=== PATIENT | female | born 1950 | race Hispanic/Latino ===

== ENCOUNTER 2019-03-19 18:05 | Inpatient (IN) | payer MEDICARE, OTHER ==
--- NOTE | 2019-03-19 19:30 | Emergency Department Report ---
Chief Complaint: Arrhythmia/Palpitations Stated Complaint: ABD PAIN/HEART RACING Time Seen by Provider: 03/19/19 19:25 - HPI History of Present Illness: pt presents for palpitations that began today states her is currently in the CCU and states she has had increased stress states she has burning sensation in the epigastric and LUQ of the abdomen no CP (+) exertional SOB, states she takes a couple steps and feels more SOB hx of afib, DM pt takes metoprolol states she last took it last night pt states she is supposed to be on xarelto and has not taken it in a week MSE screening note: Focused history performed Due to findings the following was ordered: labs, CXR/abdominal ED Disposition for MSE Condition: Stable
[2019-03-19 19:57] LABS: Basophils # (Auto) 0.1 K/mm3 (0.0-0.1); Basophils % (Auto) 1.3 % (0.0-1.8); Eosinophils # (Auto) 0.2 K/mm3 (0.0-0.4); Eosinophils % (Auto) 2.5 % (0.0-4.3); Hematocrit 35.5 % (30.3-42.9); Lymphocytes % (Auto) 23.9 % (13.4-35.0); Mean Corpuscular HGB Conc 34 % (30-34); Mean Corpuscular Volume 96 fl (79-97); Monocytes # (Auto) 0.6 K/mm3 (0.0-0.8); Platelet Count 201 K/mm3 (140-440); Red Blood Count 3.71 M/mm3 (3.65-5.03); Red Cell Distribution Width 14.3 % (13.2-15.2)
[2019-03-19 20:13] LABS: INR 1.1 (0.87-1.13)
--- NOTE | 2019-03-19 20:13 | XRay Report ---
PROCEDURE: XR ABD SERIES W CXR 1V TECHNIQUE: PA view of the chest and supine and erect views of the abdomen HISTORY: CP, upper abd pain COMPARISONS: None . FINDINGS: Chest: Lungs are clear. Trachea is midline. The heart is enlarged. Mediastinum is otherwise unremarka ble. Abdomen: The bowel gas pattern is nonspecific. Moderate stool is present throughout the colon. No makenna e air is identified. Soft tissues have no evidence for mass shadows or calcifications. Bony Structures: The bony structures are intact. Mild levoscoliosis centered around L3. IMPRESSION: 1. No acute cardiopulmonary process seen. Cardiomegaly 2. Nonspecific, nonobstructive bowel gas pattern with no acute process noted. This document is electronically signed by Najma Vernon MD., March 19 2019 08:11:42 PM ET
[2019-03-19 20:14] LABS: Albumin 3.8 g/dL (3.9-5); Calcium 9.5 mg/dL (8.4-10.2); Partial Thromboplastin Time 30.6 Sec. (24.2-36.6)
--- NOTE | 2019-03-19 20:54 | Emergency Department Report ---
ED General Adult HPI - General Chief complaint: Arrhythmia/Palpitations Stated complaint: ABD PAIN/HEART RACING Time Seen by Provider: 03/19/19 19:25 Source: patient Mode of arrival: Ambulatory Limitations: No Limitations - History of Present Illness Initial comments: 5-year-old female with a history of atrial fibrillation presents with a complaint of palpitations and upper abdominal pain. Patient also complains of shortness of breath. Patient states that she has not had her the results of therapy for the past 2 weeks. Patient complains of her heart beating fast and a terrible burning in her stomach. Patient states that she has been trying gene dee Pepcid and Ebony-Maben with minimal relief. Patient states that her symptoms began on Tuesday and she also had associated shortness of breath. Denies any radiation of pain. Severity scale (0 -10): 7 - Related Data Allergies Allergy/AdvReac Type Severity Reaction Status Date / Time No Known Allergies Allergy Unverified 03/19/19 18:19 ED Review of Systems ROS: Stated complaint: ABD PAIN/HEART RACING Other details as noted in HPI Constitutional: denies: chills, fever Eyes: denies: eye pain, eye discharge, vision change ENT: denies: ear pain, throat pain Respiratory: SOB at rest. denies: cough, shortness of breath, wheezing Cardiovascular: palpitations. denies: chest pain Endocrine: no symptoms reported Gastrointestinal: denies: abdominal pain, nausea, diarrhea Genitourinary: denies: urgency, dysuria, discharge Musculoskeletal: denies: back pain, joint swelling, arthralgia Skin: denies: rash, lesions Neurological: denies: headache, weakness, paresthesias Psychiatric: denies: anxiety, depression Hematological/Lymphatic: denies: easy bleeding, easy bruising ED Past Medical Hx - Past Medical History Hx Diabetes: Yes Additional medical history: AFIB - Surgical History Past Surgical History?: No Additional Surgical History: right knee, 2 c-sections,hysterectomy - Social History Smoking Status: Never Smoker Substance Use Type: None ED Physical Exam - General Limitations: No Limitations General appearance: alert, in no apparent distress, other (mildly uncomfortable) - Head Head exam: Present: atraumatic, normocephalic - Eye Eye exam: Present: normal appearance - ENT ENT exam: Present: mucous membranes moist - Neck Neck exam: Present: normal inspection - Respiratory Respiratory exam: Present: normal lung sounds bilaterally. Absent: respiratory distress - Cardiovascular Cardiovascular Exam: Present: irregular rhythm. Absent: systolic murmur, diastolic murmur, rubs, gallop - GI/Abdominal GI/Abdominal exam: Present: soft, tenderness (noted in epigastric region), normal bowel sounds - Extremities Exam Extremities exam: Present: normal inspection - Back Exam Back exam: Present: normal inspection - Neurological Exam Neurological exam: Present: alert, oriented X3 - Psychiatric Psychiatric exam: Present: normal affect, normal mood - Skin Skin exam: Present: warm, dry, intact, normal color. Absent: rash ED Course Vital Signs 03/19/19 03/19/19 03/19/19 19:25 22:51 23:05 Temperature 98.3 F Pulse Rate 72 77 55 L Respiratory 18 16 14 Rate Blood Pressure 159/84 Blood Pressure 164/79 153/62 [Left] O2 Sat by Pulse 96 97 96 Oximetry 03/20/19 00:03 Temperature Pulse Rate 90 Respiratory 20 Rate Blood Pressure Blood Pressure 137/72 [Left] O2 Sat by Pulse 100 Oximetry ED Medical Decision Making - Lab Data Result diagrams: 03/19/19 19:42 03/19/19 19:42 - EKG Data -: EKG Interpreted by Ms EKG shows normal: sinus rhythm - EKG Data Interpretation: other (occasional PVCs) - Medical Decision Making Patient is in no acute distress at current time. Patient on CT anterior chest has a presence of pericardial effusion. Patient has a stable at a rate of 81. Cardiology was consulted and stated they will see the patient in consultation. I spoke with Dr. Urena. Patient to be admitted to the hospitalist service for continued management and treatment. Patient at this current time has a stable blood pressure as well and has no evidence of cardiac tamponade. - Differential Diagnosis NSTEMI; STEMI; electrolyte abnormalities; anemia; PE Critical care attestation.: If time is entered above; I have spent that time in minutes in the direct care of this critically ill patient, excluding procedure time. ED Disposition Clinical Impression: Atrial fibrillation, Pericardial effusion Disposition: OP ADMIT IP TO THIS HOSP Is pt being admited?: Yes Does the pt Need Aspirin: No Condition: Stable Time of Disposition: 00:55
[2019-03-19] MEDS ORDERED: PEPCID IV ONE (21:07)
[2019-03-19] MEDS ORDERED: ALUM-MAG HYDROX-SIMETH 200-200-20MG/5ML PO ONE (21:11)
[2019-03-19] MEDS ORDERED: LIDOCAINE VISCOUS 2% PO ONE (21:11)
[2019-03-19] MEDS ORDERED: BANOPHEN PO ONE (21:12)
[2019-03-19 21:23] LABS: Creatine Kinase MB 3.6 ng/mL (0.0-4.0)
--- NOTE | 2019-03-19 23:17 | Cat Scan Report ---
PROCEDURE: CT ABDOMEN PELVIS W CON TECHNIQUE: Computerized axial tomography of the abdomen and pelvis was performed after the IV inject ion of iodinated nonionic contrast. HISTORY: chest pain and abdominal pain COMPARISONS: None . FINDINGS: Visualized lower thorax: The heart size is enlarged. There is a mild pericardial effusion. Mild atele ctasis bilateral lower lungs.. Liver: There is fatty infiltration of the liver. Spleen: Normal size and attenuation. Gallbladder and biliary system: There are stones identified with a slightly distended gallbladder lum en. No dilatation of the biliary ductal system. Pancreas: Normal. Adrenals: Normal. Kidneys: Both kidneys have a normal sinus. No hydronephrosis. There is a small subcentimeter cyst in the lateral left renal cortex.. GI tract: There is thickening of the gastric wall around the pylorus. Minimal fluid in this region i s also noted. Gastritis is active. There is a small hiatal hernia. The small bowel has normal caliber without obstruction. No ileus or enteritis. Is normal. The appendix region is normal. There is mild fecal debris throughout the colon. . Lymph nodes and mesentery: Normal. Vasculature: Minimal atherosclerosis of the aorta.. Bladder: Normal. Reproductive organs: The uterus is absent. No pelvic masses. Peritoneum: No free fluid. Musculoskeletal structures: Moderate degenerative changes of the lumbar spine.. Other: There is a moderate-sized fat-containing lower abdominal wall ventral hernia cavity. . IMPRESSION: There is thickening of the gastric wall involving the pylorus of the stomach, minimal fl uid around the gastric wall in this region is noted. Gastritis is possible. Further evaluation with e ndoscopy may be appropriate. There is a mild hiatal hernia. There is no evidence of intestinal or urinary tract obstruction. Cholelithiasis with slight distention of the gallbladder lumen. No evidence of bile duct dilatation. Cardiomegaly with slight pericardial effusion. There is a moderate-sized fat-containing lower abdominal wall ventral hernia cavity. . This document is electronically signed by Mavis Salazar DO., March 19 2019 11:15:48 PM ET
--- NOTE | 2019-03-20 00:43 | Cat Scan Report ---
PROCEDURE: CT ANGIOGRAM OF THE CHEST FOR PULMONARY EMBOLISM TECHNIQUE: Computerized axial tomographic angiography of the chest and pulmonary arteries was perfor med after the IV injection of iodinated nonionic contrast. The image data was postprocessed using max imum intensity projection (MIP) and 2-dimensional multiplanar reformatted (MPR) techniques. The exami nation is specifically tailored to the evaluation of the pulmonary arteries per clinical request. Au tomated exposure control, adjustment of mA and/or kV according to patient size, or iterative reconstr uction dose optimization techniques were utilized. CPT G9637, 75031 HISTORY: Shortness of breath R06.02, chest pain unspecified R07.9 , COMPARISONS: None . FINDINGS: Heart and pericardium: Heart is borderline enlarged. There is a moderate pericardial effusion.. Thoracic aorta: There is no thoracic aortic aneurysm or dissection.. Pulmonary vasculature: Normal. No pulmonary emboli. Lymph nodes: No enlarged thoracic lymph nodes. Lungs: There is suboptimal inspiration. There is atelectasis at the lung bases. There are no acute i nfiltrates.. Pleural space: There is no pleural effusion or pneumothorax.. Musculoskeletal structures: No significant abnormality. Upper abdominal structures: No significant abnormality. IMPRESSION: There is no pulmonary embolism.. Heart is borderline enlarged. There is a moderate pericardial effusion.. There is no thoracic aortic aneurysm or dissection.. There is suboptimal inspiration. There is atelectasis at the lung bases. There are no acute infiltrat es.. There is no pleural effusion or pneumothorax.. This document is electronically signed by Pal Burgess MD., March 20 2019 12:41:52 AM ET
[2019-03-20] MEDS ORDERED: ZOFRAN IV PRN (01:44)
[2019-03-20] MEDS ORDERED: SODIUM CHLORIDE FLUSH SYRINGE 10 ML IV PRN (01:44)
[2019-03-20] MEDS ORDERED: D50W (25GM) Syringe IV PRN (01:44)
[2019-03-20] MEDS ORDERED: PERCOCET 5/325 PO PRN (01:44)
[2019-03-20] MEDS ORDERED: TYLENOL PO PRN (01:44)
--- NOTE | 2019-03-20 01:44 | History and Physical Report ---
History of Present Illness Date of examination: 03/20/19 History of present illness: 68-year-old woman with a history of A. fib, hypertension, diabetes as emergency room with complaints of chest pain. Pain is in the epigastric and mid upper abdomen which she describes a dull pain, constant, intensity 5/10, no radiation treatment identified exacerbating symptoms. Her symptoms started on Tuesday. Admits to nausea, shortness of breatH, no vomiting diaphoresis or palpitation. Review of systems Constitutional: no weight loss, chills, fever Ears, eyes, nose, mouth and throat: no nasal congestion, no nasal discharge, no sinus pressure, no vision change, no red eye. Neck: No neck pain or rigidity. Cardiovascular: no palpitations Respiratory: no cough, shortness of breath Gastrointestinal: no hematochezia, abdominal pain Genitourinary : no frequency , no hematuria Musculoskeletal: no joint swelling or muscle ache Integumentary: no rash, no pruritis Neurological: no parathesias, no focal weakness Endocrine: no cold or heat intolerance, no polyuria or polydipsia Hematologic/Lymphatic: no easy bruising, no easy bleeding, no gland swelling Allergic/Immunologic: no urticaria, no angioedema. Medications and Allergies Allergies Allergy/AdvReac Type Severity Reaction Status Date / Time No Known Allergies Allergy Unverified 03/19/19 18:19 Home Medications Medication Instructions Recorded Confirmed Last Taken Type Unobtainable 03/20/19 03/20/19 Unknown History Exam - Physical Exam Narrative exam: General Apperance: The patient lying in bed, breathing comfortable HEENT: Normocephalic, atraumatic. Pupils equally round and reactive to light, EOMI, no sclericterus or JVD or thyromegaly or nodule. , no carotid bruit, mucous membranes moist, no exudate or erythema Heart: S1-S2, regular is rhythm Lungs: Clear to auscultation bilaterally, breathing comfortable Abdomen: Positive bowel sounds, soft, nontender, nondistended, no organomegaly Extremities: No edema cyanosis clubbing Skin: no rash, nodule, warm and dry Neuro: cranial nerves 2-12 intact, speech is fluent, motor/sensory intact - Constitutional Vitals: Temp Pulse Resp BP Pulse Ox 98.3 F 90 20 137/72 100 03/19/19 19:25 03/20/19 00:03 03/20/19 00:03 03/20/19 00:03 03/20/19 00:03 Results - Labs CBC & Chem 7: 03/20/19 04:17 03/20/19 04:17 Labs: Abnormal lab results 03/19/19 03/19/19 03/19/19 Range/Units 19:42 19:42 19:42 D-Dimer 661.14 H (0-234) ng/mlDDU BUN 21 H (7-17) mg/dL Glucose 116 H (65-100) mg/dL Total Creatine Kinase 153 H (30-135) units/L Albumin 3.8 L (3.9-5) g/dL - Imaging and Cardiology CT scan - abdomen: report reviewed CT scan - chest: report reviewed CT scan - pelvis: report reviewed Assessment and Plan Assessment Pericardial effusion Chest pain hypertension A. fib Plan Admit to medicine Check cardiac enzymes, echo, consult cardiology Consult critical care DVT prophylaxis Follow-up med rec
[2019-03-20 04:48] LABS: Basophils # (Auto) 0.1 K/mm3 (0.0-0.1); Basophils % (Auto) 0.8 % (0.0-1.8); Eosinophils # (Auto) 0.2 K/mm3 (0.0-0.4); Eosinophils % (Auto) 2.9 % (0.0-4.3); Hematocrit 33.3 % (30.3-42.9); Hemoglobin 11.4 gm/dl (10.1-14.3); Lymphocytes # (Auto) 2.4 K/mm3 (1.2-5.4); Lymphocytes % (Auto) 29.7 % (13.4-35.0); Mean Corpuscular HGB Conc 34 % (30-34); Mean Corpuscular Volume 95 fl (79-97); Monocytes # (Auto) 0.6 K/mm3 (0.0-0.8); Monocytes % (Auto) 7.9 % (0.0-7.3); Platelet Count 183 K/mm3 (140-440); Red Cell Distribution Width 14.1 % (13.2-15.2)
[2019-03-20 05:09] LABS: Calcium 9.2 mg/dL (8.4-10.2)
[2019-03-20 07:42] LABS: Creatine Kinase MB 10.8 ng/mL (0.0-4.0)
[2019-03-20] MEDS: HumaLOG SUB-Q SCH ×4 (07:48→21:48)
[2019-03-20 07:59] LABS: Chol/HDL Ratio 3.17 %
--- NOTE | 2019-03-20 08:15 | Progress Note ---
Assessment and Plan Assessment and plan: Patient is a 68 yo woman with a history of Afib, hypertension and DM who presented to [facility] ED on 03/19/19 with chest pains. * CTA chest IMPRESSION: There is no pulmonary embolism.. Heart is borderline enlarged. There is a moderate pericardial effusion.. There is no thoracic aortic aneurysm or dissection.. There is suboptimal inspiration. There is atelectasis at the lung bases. There are no acute infiltrates.. There is no pleural effusion or pneumothorax.. * CT abd/pelvis with contrast IMPRESSION: There is thickening of the gastric wall involving the pylorus of the stomach, minimal fluid around the gastric wall in this region is noted. Gastritis is possible. Further evaluation with endoscopy may be appropriate. There is a mild hiatal hernia. There is no evidence of intestinal or urinary tract obstruction. Cholelithiasis with slight distention of the gallbladder lumen. No evidence of bile duct d ilatation. Cardiomegaly with slight pericardial effusion. There is a moderate- sized fat-containing lower abdominal wall ventral hernia cavity. . -Chest pains, first troponin negative, 2nd troponin positive possible NSTEMI: notified her [employer], Dr. Velazquez, keep npo, start iv heparin drip, asa, bb, statin, ntg prn, reviewed new stat EKG, afib 80s -Pericardial effusion on CTA chest: get Echo -Accelerated hypertension: added bblocker, -AFib, out of Xarelto x 2 weeks due to lack of insurance coverage: rate control for now -Hypertension -DM type 2: ssi -Home medication not reconciled I have asked ED nurse to obtain home medications and enter into EMR. pt does know doses and waiting for [facility] to open, pcp retired -Resting tremor without diagnosis of PD: continue to monitor, advised outpt follow-up and care full code, in our ICU CCT 32 minutes History Interval history: Patient was seen and examined. Follow-up on current diagnosis. Overnight uneventful. Patient denies any chest pain, shortness breath, vomiting or severe headaches. Imaging, nursing note, chart, labs and old chart reviewed. Discussed with patient. +Abd pain Hospitalist Physical - Physical exam Narrative exam: Gen: WDWN, NAD, Awake, Alert, Orientated HEENT: NCAT, EOMI, PERRL, OP Clear Neck: supple, no adenopathy, no thyromegaly, no JVD CVS/Heart: irregular irregular normal S1S2, pulses present bilaterally Chest/Lungs: CTA B, Symmetrical chest expansion, good air entry bilaterally GI/Abdomen: soft, rll and epigastric tenderness, soft nontender ventral hernia, good bowel sounds, no guarding or rebound /Bladder: no suprapubic tenderness, no CVA or paraspinal tenderness Extermity/Skin: no c/c/e, no obvious rash MSK: FROM x 4 Neuro: CN 2-12 grossly intact, no new focal deficits, resting tremor right hand- denies 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 Psych: calm - Constitutional Vitals: Temp Pulse Resp BP Pulse Ox 98.3 F 73 16 168/90 96 03/19/19 19:25 03/20/19 07:49 03/20/19 07:49 03/20/19 07:49 03/20/19 07:49 Results - Labs CBC & Chem 7: 03/20/19 04:17 03/20/19 04:17 Labs: Laboratory Last Values WBC 8.1 K/mm3 (4.5-11.0) 03/20/19 04:17 RBC 3.50 M/mm3 (3.65-5.03) L 03/20/19 04:17 Hgb 11.4 gm/dl (10.1-14.3) 03/20/19 04:17 Hct 33.3 % (30.3-42.9) 03/20/19 04:17 MCV 95 fl (79-97) 03/20/19 04:17 MCH 33 pg (28-32) H 03/20/19 04:17 MCHC 34 % (30-34) 03/20/19 04:17 RDW 14.1 % (13.2-15.2) 03/20/19 04:17 Plt Count 183 K/mm3 (140-440) 03/20/19 04:17 Lymph % (Auto) 29.7 % (13.4-35.0) 03/20/19 04:17 [place] % (Auto) 7.9 % (0.0-7.3) H 03/20/19 04:17 Eos % (Auto) 2.9 % (0.0-4.3) 03/20/19 04:17 Baso % (Auto) 0.8 % (0.0-1.8) 03/20/19 04:17 Lymph # 2.4 K/mm3 (1.2-5.4) 03/20/19 04:17 [place] # 0.6 K/mm3 (0.0-0.8) 03/20/19 04:17 Eos # 0.2 K/mm3 (0.0-0.4) 03/20/19 04:17 Baso # 0.1 K/mm3 (0.0-0.1) 03/20/19 04:17 Seg Neutrophils % 58.7 % (40.0-70.0) 03/20/19 04:17 Seg Neutrophils # 4.7 K/mm3 (1.8-7.7) 03/20/19 04:17 PT 14.9 Sec. (12.2-14.9) 03/19/19 19:42 INR 1.10 (0.87-1.13) 03/19/19 19:42 APTT 30.6 Sec. (24.2-36.6) 03/19/19 19:42 D-Dimer 661.14 ng/mlDDU (0-234) H 03/19/19 19:42 Sodium 141 mmol/L (137-145) 03/20/19 04:17 Potassium 3.2 mmol/L (3.6-5.0) L 03/20/19 04:17 Chloride 102.0 mmol/L (98-107) 03/20/19 04:17 Carbon Dioxide 24 mmol/L (22-30) 03/20/19 04:17 Anion Gap 18 mmol/L 03/20/19 04:17 BUN 18 mg/dL (7-17) H 03/20/19 04:17 Creatinine 1.1 mg/dL (0.7-1.2) 03/20/19 04:17 Estimated GFR 49 ml/min 03/20/19 04:17 BUN/Creatinine Ratio 16 % 03/20/19 04:17 Glucose 107 mg/dL (65-100) H 03/20/19 04:17 POC Glucose 108 (70-105) H 03/20/19 07:50 Calcium 9.2 mg/dL (8.4-10.2) 03/20/19 04:17 Total Bilirubin 0.80 mg/dL (0.1-1.2) 03/19/19 19:42 AST 24 units/L (5-40) 03/19/19 19:42 ALT 16 units/L (7-56) 03/19/19 19:42 Alkaline Phosphatase 83 units/L (35-129) 03/19/19 19:42 Total Creatine Kinase 245 units/L (30-135) H 03/20/19 04:17 CK-MB (CK-2) 10.8 ng/mL (0.0-4.0) H 03/20/19 04:17 CK-MB (CK-2) Rel Index 4.4 (0-4) H 03/20/19 04:17 Troponin T 0.106 ng/mL (0.00-0.029) H* D 03/20/19 04:17 NT-Pro-B Natriuret Pep 632.1 pg/mL (0-900) 03/19/19 19:42 Total Protein 7.3 g/dL (6.3-8.2) 03/19/19 19:42 Albumin 3.8 g/dL (3.9-5) L 03/19/19 19:42 Albumin/Globulin Ratio 1.1 % 03/19/19 19:42 Triglycerides 106 mg/dL (2-149) 03/20/19 04:17 Cholesterol 89 mg/dL (50-199) 03/20/19 04:17 LDL Cholesterol Direct 52 mg/dL (50-130) 03/20/19 04:17 HDL Cholesterol 28 mg/dL (40-59) L 03/20/19 04:17 Cholesterol/HDL Ratio 3.17 % 03/20/19 04:17 TSH 2.550 mlU/mL (0.270-4.200) 03/19/19 19:42 Active Medications - Current Medications Current Medications: Generic Name Dose Route Start Last Admin Trade Name Freq PRN Reason Stop Dose Admin Acetaminophen 650 mg 03/20/19 01:44 Tylenol PO Q4H PRN Pain MILD(1-3)/Fever >100.5/COLLINS Aspirin 325 mg 03/20/19 08:20 Aspirin PO QDAY AJ Atorvastatin Calcium 80 mg 03/20/19 08:15 Lipitor PO 03/20/19 08:16 ONCE ONE Dextrose 50 ml 03/20/19 01:44 D50w (25gm) Syringe IV PRN PRN Hypoglycemia Heparin Sodium/Sodium Chloride 25,000 unit in 500 mls @ 31.978 mls/hr 03/20/19 09:00 Heparin/ 0.45% Nacl-25,000 Unit/500 Ml IV TITRATE [facility] Protocol 15 UNITS/KG/HR Insulin Human Lispro 0 unit 03/20/19 07:30 03/20/19 07:48 Humalog SUB-Q Not Given ACHS [facility] Protocol Metoprolol Tartrate 50 mg 03/20/19 10:00 Lopressor PO BID [facility] Ondansetron HCl 4 mg 03/20/19 01:44 Zofran IV Q8H PRN Nausea And Vomiting Oxycodone/Acetaminophen 1 tab 03/20/19 01:44 Percocet 5/325 PO Q6H PRN Pain, Moderate (4-6) Sodium Chloride 10 ml 03/20/19 10:00 Sodium Chloride Flush Syringe 10 Ml IV BID [facility] Sodium Chloride 10 ml 03/20/19 01:44 Sodium Chloride Flush Syringe 10 Ml IV PRN PRN LINE FLUSH
[2019-03-20] MEDS ORDERED: HEPARIN/ 0.45% NACL-25,000 UNIT/500 ML 25,000 UNIT/500 ML BAG ONE (09:05)
[2019-03-20] MEDS ORDERED: HEPARIN 10,000 UNITS/10 ML IV ONE ×2 (09:09→09:30)
[2019-03-20] MEDS ORDERED: KCL 10MEQ/100ML 10 MEQ/100 ML BAG IV ONE ×4 (09:22→13:59)
[2019-03-20] MEDS: KCL 10MEQ/100ML 10 MEQ/100 ML BAG IV SCH ×4 (09:28→13:44)
[2019-03-20] MEDS: SODIUM CHLORIDE FLUSH SYRINGE 10 ML IV SCH ×2 (09:30→21:49)
[2019-03-20] MEDS ORDERED: ASPIRIN ONE (09:34)
[2019-03-20] MEDS ORDERED: LOPRESSOR ONE (09:35)
[2019-03-20] MEDS: LOPRESSOR PO SCH ×2 (09:36→21:45)
[2019-03-20] MEDS: ASPIRIN PO SCH (09:37)
[2019-03-20] MEDS ORDERED: HEPARIN ONE (09:41)
[2019-03-20] MEDS ORDERED: HEPARIN 10,000 UNITS/10 ML ONE (09:44)
[2019-03-20] MEDS: HEPARIN/ 0.45% NACL-25,000 UNIT/500 ML 25,000 UNIT/500 ML BAG IV SCH (09:45)
[2019-03-20] MEDS ORDERED: LOVENOX SUB-Q SCH (10:00)
[2019-03-20] MEDS ORDERED: ASPIRIN PO SCH (10:00)
[2019-03-20 10:11] LABS: Hematocrit 35.1 % (30.3-42.9); Hemoglobin 11.9 gm/dl (10.1-14.3)
[2019-03-20 10:22] LABS: INR 1.12 (0.87-1.13)
--- NOTE | 2019-03-20 10:46 | Consultation ---
History of Present Illness Consult date: 03/20/19 Requesting physician: PHOENIX LOPEZ Consult reason: other ("pericardial effusion") History of present illness: The pt is a 68 YO female with a past medical history of chronic AFib, anticoagulated with Xarelto, HTN, HLP, obesity. She is followed in our office by Dr. Velazquez. She presented with c/o epigastric pain and nausea since Tuesday. She states that she ate some [place] food for dinner on Tuesday and noted the on set of her pain and nausea. She took some Tums and noted improvement. Since Tuesday, the pain has been intermittently present. The pt's is currently admitted to [facility] CCU. Yesterday, the pt was ambulating around the hospital while visiting her when she noted a worsening of her epigastric pain and some SOB and thus she decided to seek medical attention. She denies any precordial chest pain, palpitations, vomiting, diaphoresis, dizziness or syncope. She denies any prior CAD, AMI or HF. She admits that she has not taken her Xarelto in 2 weeks due to financial issues - she reports she is in the process of trying to convert Xarelto to a more affordable agent. Echo done 05/2016 showed EF 50%, mild LVH, LA severely enlarged. Lexiscan MPI stress test done 10/2017 was negative. Past History Past Medical History: atrial fib, hypertension, hyperlipidemia Medications and Allergies Allergies Allergy/AdvReac Type Severity Reaction Status Date / Time No Known Allergies Allergy Unverified 03/19/19 18:19 Home Medications Medication Instructions Recorded Confirmed Last Taken Type Hydrochlorothiazide 25 mg PO DAILY 03/20/19 03/20/19 Unknown History Lasix 40 mg PO DAILY 03/20/19 03/20/19 Unknown History Lisinopril 10 mg PO DAILY 03/20/19 03/20/19 Unknown History Metoprolol 100 mg PO DAILY 03/20/19 03/20/19 Unknown History Potassium Chloride 20 meq PO DAILY 03/20/19 03/20/19 Unknown History Xarelto 20 mg PO DAILY 03/20/19 03/20/19 Unknown History Active Meds: Active Medications Acetaminophen (Tylenol) 650 mg PO Q4H PRN PRN Reason: Pain MILD(1-3)/Fever >100.5/COLLINS Aspirin (Aspirin) 325 mg PO QDAY AJ Last Admin: 03/20/19 09:37 Dose: 325 mg Documented by: Dextrose (D50w (25gm) Syringe) 50 ml IV PRN PRN PRN Reason: Hypoglycemia Heparin Sodium/Sodium Chloride (Heparin/ 0.45% Nacl-25,000 Unit/500 Ml) 25,000 unit in 500 mls @ 20 mls/hr IV TITRATE [facility]; Protocol Last Admin: 03/20/19 09:45 Dose: 1,000 units/hr, 20 mls/hr Documented by: Potassium Chloride (Kcl 10meq/100ml) 10 meq in 100 mls @ 100 mls/hr IV Q1H [facility] Stop: 03/20/19 12:59 Last Admin: 03/20/19 09:28 Dose: 100 mls/hr Documented by: Insulin Human Lispro (Humalog) 0 unit SUB-Q ACHS [facility]; Protocol Last Admin: 03/20/19 07:48 Dose: Not Given Documented by: Metoprolol Tartrate (Lopressor) 50 mg PO BID [facility] Last Admin: 03/20/19 09:36 Dose: 50 mg Documented by: Ondansetron HCl (Zofran) 4 mg IV Q8H PRN PRN Reason: Nausea And Vomiting Oxycodone/Acetaminophen (Percocet 5/325) 1 tab PO Q6H PRN PRN Reason: Pain, Moderate (4-6) Sodium Chloride (Sodium Chloride Flush Syringe 10 Ml) 10 ml IV BID [facility] Last Admin: 03/20/19 09:30 Dose: 10 ml Documented by: Sodium Chloride (Sodium Chloride Flush Syringe 10 Ml) 10 ml IV PRN PRN PRN Reason: LINE FLUSH Review of Systems Constitutional: no weight loss, no weight gain, no fever, no chills, no sweats Ears, nose, mouth and throat: no ear pain, no nose pain, no sinus pressure, no sinus pain Cardiovascular: chest pain, shortness of breath, dyspnea on exertion, no orthopnea, no palpitations, no rapid/irregular heart beat, no edema, no syncope, no lightheadedness, no leg edema Respiratory: shortness of breath, dyspnea on exertion, no cough, no congestion, no wheezing, no pain on inspiration Gastrointestinal: abdominal pain, nausea, no vomiting, no diarrhea, no constipation, no change in bowel habits Genitourinary Female: no pelvic pain, no flank pain, no dysuria, no urinary frequency, no urgency Musculoskeletal: no neck stiffness, no neck pain, no shooting arm pain, no arm numbness/tingling, no low back pain, no shooting leg pain Integumentary: no rash, no pruritis, no redness, no sores, no wounds Neurological: no head injury, no paralysis, no weakness, no parathesias, no numbness, no tingling, no seizures, no syncope Psychiatric: no anxiety Endocrine: no cold intolerance, no heat intolerance Hematologic/Lymphatic: no easy bruising, no easy bleeding Allergic/Immunologic: no urticaria, no wheezing Physical Examination Vital Signs Temp Pulse Resp BP Pulse Ox 98.3 F 72 18 159/84 96 03/19/19 19:25 03/19/19 19:25 03/19/19 19:25 03/19/19 19:25 03/19/19 19:25 General appearance: no acute distress HEENT: Positive: PERRL, Normocephaly, Mucus Membranes Moist Neck: Positive: neck supple, trachea midline Cardiac: Positive: Reg Rate and Rhythm, S1/S2 Lungs: Positive: clear to auscultation Neuro: Positive: Grossly Intact Abdomen: Positive: Soft Skin: Negative: Rash Musculoskeletal: No Pain Extremities: Absent: edema Results 03/20/19 09:27 03/20/19 04:17 Cardiac Enzymes 03/19/19 03/19/19 03/20/19 Range/Units 19:42 19:42 04:17 AST 24 (5-40) units/L CK-MB (CK-2) 3.6 10.8 H (0.0-4.0) ng/mL Coagulation 03/19/19 03/20/19 Range/Units 19:42 09:27 PT 14.9 15.1 H (12.2-14.9) Sec. INR 1.10 1.12 (0.87-1.13) APTT 30.6 28.0 (24.2-36.6) Sec. Lipids 03/20/19 Range/Units 04:17 Triglycerides 106 (2-149) mg/dL Cholesterol 89 (50-199) mg/dL HDL Cholesterol 28 L (40-59) mg/dL Cholesterol/HDL Ratio 3.17 % CBC 03/19/19 03/20/1919 Range/Units 19:42 04:17 09:27 WBC 8.5 8.1 (4.5-11.0) K/mm3 RBC 3.71 3.50 L (3.65-5.03) M/mm3 Hgb 12.0 11.4 11.9 (10.1-14.3) gm/dl Hct 35.5 33.3 35.1 (30.3-42.9) % Plt Count 201 183 202 (140-440) K/mm3 Lymph # 2.0 2.4 (1.2-5.4) K/mm3 Dunn # 0.6 0.6 (0.0-0.8) K/mm3 Eos # 0.2 0.2 (0.0-0.4) K/mm3 Baso # 0.1 0.1 (0.0-0.1) K/mm3 Comprehensive Metabolic Panel 03/19/19 03/20/19 Range/Units 19:42 04:17 Sodium 144 141 (137-145) mmol/L Potassium 3.9 3.2 L (3.6-5.0) mmol/L Chloride 105.2 102.0 (98-107) mmol/L Carbon Dioxide 27 24 (22-30) mmol/L BUN 21 H 18 H (7-17) mg/dL Creatinine 1.1 1.1 (0.7-1.2) mg/dL Glucose 116 H 107 H (65-100) mg/dL Calcium 9.5 9.2 (8.4-10.2) mg/dL AST 24 (5-40) units/L ALT 16 (7-56) units/L Alkaline Phosphatase 83 (35-129) units/L Total Protein 7.3 (6.3-8.2) g/dL Albumin 3.8 L (3.9-5) g/dL - Imaging and Cardiology Echo: pending, report reviewed ( 05/2016 showed EF 50%, mild LVH, LA severely enlarged. ) EKG: report reviewed, image reviewed EKG interpretations - Telemetry EKG Rhythm: Atrial Fibrillation - EKG Supraventricular dysrhythmia: atrial fibrillation Assessment and Plan Epigastric pain / nausea Abdomen/pelvis CT showed possible gastritis, hiatal hernia, cholelithiasis with slight distention of gallbladder, cardiomegaly with slight pericardial effusion. Consider GI consultation per primary. Elevated troponon x 1 set (< 0.010 -> 0.106 -> 0.010) ECG with no acute ischemic changes. Pt denies any precordial chest pain. Unclear significance. Cont to trend and repeat ECG in AM. Lexiscan MPI stress test done 10/2017 was negative. Pericardial effusion "Slight" pericardial effusion visualized on abdomen CT, "Moderate" pericardial effusion visualized on chest CTA. F/u echo. Chronic atrial fibrillation Rate controlled. Cont lopressor. Cont heparin gtt and plan for conversion to OAC prior to hospital discharge. Of note, pt has not taken her Xarelto in 2 weeks due to financial issues - she reports she is in the process of trying to convert Xarelto to a more affordable agent. Can consider Coumadin. Elevated DDimer Chest CTA negative for PE. HTN Stable. HLP Lipid panel reviewed. Hypokalemia Replete K+. Check serum Mg. Obesity The patient has been seen in conjunction with Dr. Velazquez who agrees with the assessment and plan of care.
[2019-03-20 14:46] LABS: Creatine Kinase MB 2.6 ng/mL (0.0-4.0)
[2019-03-21 06:34] LABS: BUN/Creatinine Ratio 19; Blood Urea Nitrogen 15 mg/dL (7-17); Calcium 8.7 mg/dL (8.4-10.2); Hemolysis Index 8
[2019-03-21] MEDS: HEPARIN/ 0.45% NACL-25,000 UNIT/500 ML 25,000 UNIT/500 ML BAG IV SCH (07:39)
[2019-03-21] MEDS ORDERED: HCTZ PO SCH (10:00)
[2019-03-21] MEDS ORDERED: ZESTRIL PO SCH (10:00)
[2019-03-21] MEDS ORDERED: NON-FORMULARY (Metoprolol 100 MG) PO SCH (10:00)
[2019-03-21] MEDS ORDERED: NON-FORMULARY (Xarelto 20 MG) PO SCH (10:00)
[2019-03-21] MEDS ORDERED: POTASSIUM CHLORIDE 20 MEQ PO SCH (10:00)
[2019-03-21] MEDS ORDERED: NON-FORMULARY (Lisinopril 10 MG) PO SCH (10:00)
[2019-03-21] MEDS ORDERED: NON-FORMULARY (Lasix 40 MG) PO SCH (10:00)
[2019-03-21] MEDS ORDERED: NON-FORMULARY (Hydrochlorothiazide 25 MG) PO SCH (10:00)
[2019-03-21] MEDS: LOPRESSOR PO SCH ×2 (10:28→21:10)
[2019-03-21] MEDS: ASPIRIN PO SCH (10:28)
[2019-03-21] MEDS: K-DUR PO SCH (10:28)
[2019-03-21] MEDS: HumaLOG SUB-Q SCH ×4 (10:28→22:09)
[2019-03-21] MEDS: LASIX PO SCH (10:28)
[2019-03-21] MEDS: SODIUM CHLORIDE FLUSH SYRINGE 10 ML IV SCH ×2 (10:30→21:11)
[2019-03-21] MEDS ORDERED: XARELTO PO SCH (11:00)
--- NOTE | 2019-03-21 11:35 | Progress Note ---
Assessment and Plan Epigastric pain / nausea Abdomen/pelvis CT showed possible gastritis, hiatal hernia, cholelithiasis with slight distention of gallbladder, cardiomegaly with slight pericardial effusion. Pt reports she is followed by Dr. Mckeon for h/o diverticulitis. Consider GI consultation per primary. Pt reports her hospitalist told her Protonix would be initiated today. Elevated troponon x 1 set (< 0.010 -> 0.106 -> 0.010) ECG with no acute ischemic changes. Pt denies any precordial chest pain. Un clear significance. Lexiscan MPI stress test done 10/2017 was negative. Pericardial effusion "Slight" pericardial effusion visualized on abdomen CT, "Moderate" pericardia l effusion visualized on chest CTA. Echo reviewed - EF 40-45%, LA severely dilated, mod MR, RVSP 47mmHg, small pericardial effusion. No current evidence of hemodynamic instability. Cont present management. Plan to f/u as OP. Chronic atrial fibrillation Rate controlled. Cont lopressor. Cont heparin gtt. Of note, pt has not taken her Xarelto in 2 weeks due to financial issues - she reports she is in the process of trying to convert Xarelto to a more affordable agent. She is agreeable to initiate warfarin - will start today with tx INR 2-3. Elevated DDimer Chest CTA negative for PE. HTN Stable. HLP Lipid panel reviewed. Hypokalemia Replete K+. Obesity Currently stable cardiac status. Pt may discharge home from cardiology standpoint. Initiate warfarin today with tx INR 2-3. Cont heparin gtt while hospitalized and recommend discharge on Lovenox 100mg BID x 5 days. Follow up in our [place] office with Dr. Velazquez for post-hospital f/u and INR check on 04/25/2019 @ 1:00PM. The patient has been seen in conjunction with Dr. Velazquez who agrees with the assessment and plan of care. Subjective Date of service: 03/21/19 Principal diagnosis: epigastric pain Interval history: pt resting in bed, still with c/o epigastric pain, denies any chest pain. in AFib with CVR. Objective Last Vital Signs Temp 98.1 F 03/21/19 04:00 Pulse 86 03/20/19 21:45 Resp 16 03/20/19 13:41 BP 160/78 03/20/19 21:45 Pulse Ox 97 03/21/19 09:01 - Physical Examination General: No Apparent Distress HEENT: Positive: PERRL, Normocephaly, Mucus Membranes Moist Neck: Positive: neck supple, trachea midline Cardiac: Positive: irregularly irregular, S1/S2 Lungs: Positive: Decreased Breath Sounds Neuro: Positive: Grossly Intact Abdomen: Positive: Soft Skin: Negative: Rash Musculoskeletal: No Pain Extremities: Absent: edema - Labs and Meds Cardiac Enzymes 03/20/19 Range/Units 14:08 CK-MB (CK-2) 2.6 (0.0-4.0) ng/mL Comprehensive Metabolic Panel 03/21/19 Range/Units 05:54 Sodium 143 (137-145) mmol/L Potassium 3.5 L (3.6-5.0) mmol/L Chloride 107.5 H (98-107) mmol/L Carbon Dioxide 24 (22-30) mmol/L BUN 15 (7-17) mg/dL Creatinine 0.8 (0.7-1.2) mg/dL Glucose 112 H (65-100) mg/dL Calcium 8.7 (8.4-10.2) mg/dL - Imaging and Cardiology EKG: report reviewed, image reviewed Echo: report reviewed ( 05/2016 showed EF 50%, mild LVH, LA severely enlarged. ) - Telemetry EKG Rhythm: Atrial Fibrillation
[2019-03-21] MEDS ORDERED: K-DUR PO ONE (12:09)
--- NOTE | 2019-03-21 12:19 | Progress Note ---
Assessment and Plan Assessment and plan: Patient is a 68 yo woman with a history of Afib, hypertension and DM who presented to [facility] ED on 03/19/19 with chest pains. * CTA chest IMPRESSION: There is no pulmonary embolism.. Heart is borderline enlarged. There is a moderate pericardial effusion.. There is no thoracic aortic aneurysm or dissection.. There is suboptimal inspiration. There is atelectasis at the lung bases. There are no acute infiltrates.. There is no pleural effusion or pneumothorax.. * CT abd/pelvis with contrast IMPRESSION: There is thickening of the gastric wall involving the pylorus of the stomach, minimal fluid around the gastric wall in this region is noted. Gastritis is possible. Further evaluation with endoscopy may be appropriate. There is a mild hiatal hernia. There is no evidence of intestinal or urinary tract obstruction. Cholelithiasis with slight distention of the gallbladder lumen. No evidence of bile duct d ilatation. Cardiomegaly with slight pericardial effusion. There is a moderate- sized fat-containing lower abdominal wall ventral hernia cavity. . -Chest pains, first troponin negative, 2nd troponin positive but 3rd set back to normal so NSTEMI ruled out, the chest pains most likely GERD related, her main compliant now: consult GI, -Distended Gallbladder: get GB ultrasound, HIDA scan in am, will consider GS consult based upon those results -Pericardial effusion on CTA chest: reviewed Echo, small pericardial effusion -Accelerated hypertension: added bblocker, -AFib, out of Xarelto x 2 weeks due to lack of insurance coverage: stop Xarelto, start lovenox/warfarin -Hypertension -DM type 2: ssi -Home medication not reconciled I have asked ED nurse to obtain home medications and enter into EMR. pt does know doses and waiting for [facility] to open, pcp retired -Resting tremor without diagnosis of PD: continue to monitor, advised outpt follow-up and care full code, in our ICU Disposition: continue inpatient care, transfer out of IMCU, evaluated the distended GB and epigastric abdominal pains, HIDA scan in am. History Interval history: Patient was seen and examined. Follow-up on current diagnosis. Overnight uneventful. Patient denies any chest pain, shortness breath, vomiting or severe headaches. Imaging, nursing note, chart, labs and old chart reviewed. Discussed with patient. +Abd pain Hospitalist Physical - Physical exam Narrative exam: Gen: WDWN, NAD, Awake, Alert, Orientated HEENT: NCAT, EOMI, PERRL, OP Clear Neck: supple, no adenopathy, no thyromegaly, no JVD CVS/Heart: irregular irregular normal S1S2, pulses present bilaterally Chest/Lungs: CTA B, Symmetrical chest expansion, good air entry bilaterally GI/Abdomen: soft, rll and epigastric tenderness, soft nontender ventral hernia, good bowel sounds, no guarding or rebound /Bladder: no suprapubic tenderness, no CVA or paraspinal tenderness Extermity/Skin: no c/c/e, no obvious rash MSK: FROM x 4 Neuro: CN 2-12 grossly intact, no new focal deficits, resting tremor right hand- denies 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 Psych: calm - Constitutional Vitals: Temp Pulse Resp BP Pulse Ox 98.0 F 86 16 160/78 97 03/21/19 11:48 03/20/19 21:45 03/20/19 13:41 03/20/19 21:45 03/21/19 09:01 General appearance: Present: no acute distress Results - Labs CBC & Chem 7: 03/20/19 09:27 03/21/19 05:54 Labs: Laboratory Last Values WBC 8.1 K/mm3 (4.5-11.0) 03/20/19 04:17 RBC 3.50 M/mm3 (3.65-5.03) L 03/20/19 04:17 Hgb 11.9 gm/dl (10.1-14.3) 03/20/19 09:27 Hct 35.1 % (30.3-42.9) 03/20/19 09:27 MCV 95 fl (79-97) 03/20/19 04:17 MCH 33 pg (28-32) H 03/20/19 04:17 MCHC 34 % (30-34) 03/20/19 04:17 RDW 14.1 % (13.2-15.2) 03/20/19 04:17 Plt Count 202 K/mm3 (140-440) 03/20/19 09:27 Lymph % (Auto) 29.7 % (13.4-35.0) 03/20/19 04:17 Benton % (Auto) 7.9 % (0.0-7.3) H 03/20/19 04:17 Eos % (Auto) 2.9 % (0.0-4.3) 03/20/19 04:17 Baso % (Auto) 0.8 % (0.0-1.8) 03/20/19 04:17 Lymph # 2.4 K/mm3 (1.2-5.4) 03/20/19 04:17 Benton # 0.6 K/mm3 (0.0-0.8) 03/20/19 04:17 Eos # 0.2 K/mm3 (0.0-0.4) 03/20/19 04:17 Baso # 0.1 K/mm3 (0.0-0.1) 03/20/19 04:17 Seg Neutrophils % 58.7 % (40.0-70.0) 03/20/19 04:17 Seg Neutrophils # 4.7 K/mm3 (1.8-7.7) 03/20/19 04:17 PT 15.1 Sec. (12.2-14.9) H 03/20/19 09:27 INR 1.12 (0.87-1.13) 03/20/19 09:27 APTT 28.0 Sec. (24.2-36.6) 03/20/19 09:27 D-Dimer 661.14 ng/mlDDU (0-234) H 03/19/19 19:42 Heparin Anti-Xa Level 0.59 U.I./ml (0.3-0.7) 03/21/19 05:54 Sodium 143 mmol/L (137-145) 03/21/19 05:54 Potassium 3.5 mmol/L (3.6-5.0) L 03/21/19 05:54 Chloride 107.5 mmol/L (98-107) H 03/21/19 05:54 Carbon Dioxide 24 mmol/L (22-30) 03/21/19 05:54 Anion Gap 15 mmol/L 03/21/19 05:54 BUN 15 mg/dL (7-17) 03/21/19 05:54 Creatinine 0.8 mg/dL (0.7-1.2) 03/21/19 05:54 Estimated GFR > 60 ml/min 03/21/19 05:54 BUN/Creatinine Ratio 19 % 03/21/19 05:54 Glucose 112 mg/dL (65-100) H 03/21/19 05:54 POC Glucose 120 (70-105) H 03/21/19 11:37 Calcium 8.7 mg/dL (8.4-10.2) 03/21/19 05:54 Magnesium 2.00 mg/dL (1.7-2.3) 03/21/19 05:54 Total Bilirubin 0.80 mg/dL (0.1-1.2) 03/19/19 19:42 AST 24 units/L (5-40) 03/19/19 19:42 ALT 16 units/L (7-56) 03/19/19 19:42 Alkaline Phosphatase 83 units/L (35-129) 03/19/19 19:42 Total Creatine Kinase 142 units/L (30-135) H 03/20/19 14:08 CK-MB (CK-2) 2.6 ng/mL (0.0-4.0) 03/20/19 14:08 CK-MB (CK-2) Rel Index 1.8 (0-4) 03/20/19 14:08 Troponin T < 0.010 ng/mL (0.00-0.029) 03/21/19 05:54 NT-Pro-B Natriuret Pep 632.1 pg/mL (0-900) 03/19/19 19:42 Total Protein 7.3 g/dL (6.3-8.2) 03/19/19 19:42 Albumin 3.8 g/dL (3.9-5) L 03/19/19 19:42 Albumin/Globulin Ratio 1.1 % 03/19/19 19:42 Triglycerides 106 mg/dL (2-149) 03/20/19 04:17 Cholesterol 89 mg/dL (50-199) 03/20/19 04:17 LDL Cholesterol Direct 52 mg/dL (50-130) 03/20/19 04:17 HDL Cholesterol 28 mg/dL (40-59) L 03/20/19 04:17 Cholesterol/HDL Ratio 3.17 % 03/20/19 04:17 TSH 2.550 mlU/mL (0.270-4.200) 03/19/19 19:42 Active Medications - Current Medications Current Medications: Generic Name Dose Route Start Last Admin Trade Name Freq PRN Reason Stop Dose Admin Acetaminophen 650 mg 03/20/19 01:44 Tylenol PO Q4H PRN Pain MILD(1-3)/Fever >100.5/COLLINS Aspirin 325 mg 03/20/19 10:00 03/21/19 10:28 Aspirin PO 325 mg QDAY AJ Administration Dextrose 50 ml 03/20/19 01:44 D50w (25gm) Syringe IV PRN PRN Hypoglycemia Furosemide 40 mg 03/21/19 10:00 03/21/19 10:28 Lasix PO 40 mg DAILY AJ Administration Hydrochlorothiazide 25 mg 03/21/19 10:00 03/21/19 10:31 Hctz PO 25 mg QDAY AJ Administration Insulin Human Lispro 0 unit 03/20/19 07:30 03/21/19 11:56 Humalog SUB-Q Not Given ACHS [facility] Protocol Lisinopril 10 mg 03/21/19 10:00 03/21/19 10:29 Zestril PO 10 mg QDAY AJ Administration Metoprolol Tartrate 50 mg 03/20/19 10:00 03/21/19 10:28 Lopressor PO 50 mg BID AJ Administration Ondansetron HCl 4 mg 03/20/19 01:44 Zofran IV Q8H PRN Nausea And Vomiting Oxycodone/Acetaminophen 1 tab 03/20/19 01:44 Percocet 5/325 PO Q6H PRN Pain, Moderate (4-6) Pantoprazole Sodium 40 mg 03/21/19 13:00 Protonix PO QDAY AJ Potassium Chloride 20 meq 03/21/19 10:00 03/21/19 10:28 K-Dur PO 20 meq QDAY AJ Administration Potassium Chloride 20 meq 03/21/19 12:09 K-Dur PO 03/21/19 12:10 ONCE ONE Sodium Chloride 10 ml 03/20/19 10:00 03/21/19 10:30 Sodium Chloride Flush Syringe 10 Ml IV 10 ml BID AJ Administration Sodium Chloride 10 ml 03/20/19 01:44 Sodium Chloride Flush Syringe 10 Ml IV PRN PRN LINE FLUSH
[2019-03-21] MEDS: PROTONIX PO SCH (13:34)
[2019-03-21] MEDS: ZESTRIL PO SCH (13:35)
--- NOTE | 2019-03-21 14:53 | Gastroenterology Consultation ---
History of Present Illness - Reason for Consult Consult date: 03/21/19 epigastric pain, distended GB Requesting physician: CARLYN KRISHNAMURTHY - History of Present Illness Patient is a 68 y/o female with PMH of chronic A-fib, HTN, HLP, DM, and obesity who presented to ED with SOB and epigastric pain. Upon admission, CT chest was negative for PE but troponin was found to be elevated with abd CT also showing possible gastritis and distended GB. Cardiology following with workup negative for ischemia. GI has been consulted for epigastric pain and distended GB. This afternoon patient was sitting on the side of bed w/o acute distress and family at bedside. She reports an acute onset of non-radiating epigastric pain last Tuesday. Pain is described as a "burning". Admits to associated intermittent nausea w/o vomiting but currently tolerating regular diet. Epigastric pain is exacerbated with an empty stomach and slightly improved with PO intake. Denies fever, CP, wt loss, signs of bleeding, or LGI symptoms. She has taken OTC prilosec and tara-seltzer for the past few days with no improvement. Takes Aleve BID x ~1 year. No hx of PUD or prior EGD. Patient has been seen by our service in the past for hx of colon polyps with last colonoscopy in [address] Kelly which showed revealed a transverse colon polyp, moderate diverticulosis, and non-bleeding internal hemorrhoids. Past History Past Medical History: other (as per HPI) Past Surgical History: , hysterectomy, Other (ight knee,) Social history: denies: smoking, alcohol abuse Medications and Allergies Allergies Allergy/AdvReac Type Severity Reaction Status Date / Time No Known Allergies Allergy Unverified 03/19/19 18:19 Home Medications Medication Instructions Recorded Confirmed Last Taken Type Hydrochlorothiazide 25 mg PO DAILY 03/20/19 03/20/19 Unknown History Lasix 40 mg PO DAILY 03/20/19 03/20/19 Unknown History Lisinopril 10 mg PO DAILY 03/20/19 03/20/19 Unknown History Metoprolol 100 mg PO DAILY 03/20/19 03/20/19 Unknown History Potassium Chloride 20 meq PO DAILY 03/20/19 03/20/19 Unknown History Xarelto 20 mg PO DAILY 03/20/19 03/20/19 Unknown History Active Meds: Active Medications Acetaminophen (Tylenol) 650 mg PO Q4H PRN PRN Reason: Pain MILD(1-3)/Fever >100.5/COLLINS Aspirin (Aspirin) 325 mg PO QDAY [facility] Last Admin: 03/21/19 10:28 Dose: 325 mg Documented by: Dextrose (D50w (25gm) Syringe) 50 ml IV PRN PRN PRN Reason: Hypoglycemia Enoxaparin Sodium (Lovenox) 100 mg SUB-Q Q12HR [facility] Furosemide (Lasix) 40 mg PO DAILY [facility] Last Admin: 03/21/19 10:28 Dose: 40 mg Documented by: Insulin Human Lispro (Humalog) 0 unit SUB-Q ACHS [facility]; Protocol Last Admin: 03/21/19 11:56 Dose: Not Given Documented by: Lisinopril (Zestril) 20 mg PO QDAY [facility] Last Admin: 03/21/19 13:35 Dose: Not Given Documented by: Metoprolol Tartrate (Lopressor) 50 mg PO BID [facility] Last Admin: 03/21/19 10:28 Dose: 50 mg Documented by: Ondansetron HCl (Zofran) 4 mg IV Q8H PRN PRN Reason: Nausea And Vomiting Oxycodone/Acetaminophen (Percocet 5/325) 1 tab PO Q6H PRN PRN Reason: Pain, Moderate (4-6) Pantoprazole Sodium (Protonix) 40 mg PO QDAY [facility] Last Admin: 03/21/19 13:34 Dose: 40 mg Documented by: Potassium Chloride (K-Dur) 20 meq PO QDAY [facility] Last Admin: 03/21/19 10:28 Dose: 20 meq Documented by: Sodium Chloride (Sodium Chloride Flush Syringe 10 Ml) 10 ml IV BID [facility] Last Admin: 03/21/19 10:30 Dose: 10 ml Documented by: Sodium Chloride (Sodium Chloride Flush Syringe 10 Ml) 10 ml IV PRN PRN PRN Reason: LINE FLUSH Warfarin Sodium (Coumadin) 7.5 mg PO DAILY@1700 [facility] medications reviewed/updated as required Review of Systems - Review of Systems All systems: negative Gastrointestinal: abdominal pain (epigastric), nausea Exam - Constitutional Vital Signs: Temp Pulse Resp BP Pulse Ox 98.0 F 86 16 160/78 97 03/21/19 11:48 03/20/19 21:45 03/20/19 13:41 03/20/19 21:45 03/21/19 09:01 General appearance: no acute distress - Respiratory Respiratory: bilateral: diminished - Cardiovascular Rhythm: other (irregular) - Gastrointestinal General gastrointestinal: Present: soft, tender (epigastric), non-distended, normal bowel sounds - Neurologic Neurological: alert and oriented x3 - Labs CBC & Chem 7: 03/20/19 09:27 03/21/19 05:54 Lab Results: Laboratory Results - last 24 hr 03/20/19 03/20/19 03/20/19 15:29 16:23 21:20 Heparin Anti-Xa Level 0.30 0.29 L Sodium Potassium Chloride Carbon Dioxide Anion Gap BUN Creatinine Estimated GFR BUN/Creatinine Ratio Glucose POC Glucose 101 Calcium Magnesium Troponin T 03/20/19 03/21/19 03/21/19 21:32 05:54 05:54 Heparin Anti-Xa Level 0.59 Sodium 143 Potassium 3.5 L Chloride 107.5 H Carbon Dioxide 24 Anion Gap 15 BUN 15 Creatinine 0.8 Estimated GFR > 60 BUN/Creatinine Ratio 19 Glucose 112 H POC Glucose 105 Calcium 8.7 Magnesium 2.00 Troponin T < 0.010 03/21/19 03/21/19 07:50 11:37 Heparin Anti-Xa Level Sodium Potassium Chloride Carbon Dioxide Anion Gap BUN Creatinine Estimated GFR BUN/Creatinine Ratio Glucose POC Glucose 103 120 H Calcium Magnesium Troponin T Assessment and Plan 1.epigastric pain 2.nausea 3.abnormal CT (distended GB) -afebrile -WBC, H/H, LFTs- WNL -INR 1.12 -abd CT-showed thickening of the gastric wall involving the pylorus of the stomach with minimal fluid around the gastric wall (possible gastritis) and cholelithiasis with slight distention of gallbladder (no evidence of bile duct dilatation) -patient reports acute onset of epigastric pain last Tuesday that is non- radiating and described as a "burning". Pain is slightly improved with PO intake. Has associated occasional nausea but no vomiting or signs of bleeding. -etiology-possible PUD vs GB vs other -abdominal U/S -EGD tomorrow for further evaluation (r/o GI pathology) -NPO after MN and hold coumadin for EGD (okay per cardiology; heparin drip now d/c) -consider HIDA scan if above results are negative -continue PPI and supportive care -will follow 4.chronic Afib 5.mild cardiomyopathy-EF 40-45% 6.elevated troponin-cardiac workup negative for ischemia -stress test 10/2017 negative 7.HTN 8.DM
[2019-03-21] MEDS ORDERED: COUMADIN PO SCH (17:00)
[2019-03-21] MEDS: LOVENOX SUB-Q SCH (21:11)
[2019-03-22 05:38] LABS: INR 2.02 (0.87-1.13)
[2019-03-22] MEDS: HumaLOG SUB-Q SCH ×3 (10:05→16:37)
[2019-03-22] MEDS: K-DUR PO SCH (10:32)
[2019-03-22] MEDS: PROTONIX PO SCH (10:32)
[2019-03-22] MEDS: LOVENOX SUB-Q SCH (10:36)
[2019-03-22] MEDS: LOPRESSOR PO SCH (10:37)
[2019-03-22] MEDS: LASIX PO SCH (10:38)
[2019-03-22] MEDS: ZESTRIL PO SCH (10:38)
[2019-03-22] MEDS: ASPIRIN PO SCH (10:38)
[2019-03-22] MEDS: SODIUM CHLORIDE FLUSH SYRINGE 10 ML IV SCH (10:38)
--- NOTE | 2019-03-22 11:04 | Progress Note ---
Assessment and Plan Assessment and plan: Patient is a 68 yo woman with a history of Afib, hypertension and DM who presented to [facility] ED on 03/19/19 with chest pains. * CTA chest IMPRESSION: There is no pulmonary embolism.. Heart is borderline enlarged. There is a moderate pericardial effusion.. There is no thoracic aortic aneurysm or dissection.. There is suboptimal inspiration. There is atelectasis at the lung bases. There are no acute infiltrates.. There is no pleural effusion or pneumothorax.. * CT abd/pelvis with contrast IMPRESSION: There is thickening of the gastric wall involving the pylorus of the stomach, minimal fluid around the gastric wall in this region is noted. Gastritis is possible. Further evaluation with endoscopy may be appropriate. There is a mild hiatal hernia. There is no evidence of intestinal or urinary tract obstruction. Cholelithiasis with slight distention of the gallbladder lumen. No evidence of bile duct d ilatation. Cardiomegaly with slight pericardial effusion. There is a moderate- sized fat-containing lower abdominal wall ventral hernia cavity. . -Chest pains, first troponin negative, 2nd troponin positive but 3rd set back to normal so NSTEMI ruled out, the chest pains most likely GERD related, her main compliant now: consult GI, -Distended Gallbladder: get GB ultrasound, HIDA scan in am, will consider GS consult based upon those results -Pericardial effusion on CTA chest: reviewed Echo, small pericardial effusion -Accelerated hypertension: added bblocker, -AFib, out of Xarelto x 2 weeks due to lack of insurance coverage: stop Xarelto, start lovenox/warfarin -Hypertension -DM type 2: ssi -Home medication not reconciled I have asked ED nurse to obtain home medications and enter into EMR. pt does know doses and waiting for [facility] to open, pcp retired -Resting tremor without diagnosis of PD: continue to monitor, advised outpt follow-up and care full code, in our ICU Disposition: continue inpatient care, transfer out of IMCU, evaluated the distended GB and epigastric abdominal pains, EGD INR went from 1.12 to 2.02 in 2 days. Will stop sq lovenox and adjust Warfarin EGD and abd u/s pending, and possible d/c home based upon those results History Interval history: Patient was seen and examined. Follow-up on current diagnosis. Overnight uneventful. Patient denies any chest pain, shortness breath, vomiting or severe headaches. Imaging, nursing note, chart, labs and old chart reviewed. Discussed with patient. +Abd pain Hospitalist Physical - Physical exam Narrative exam: Gen: WDWN, NAD, Awake, Alert, Orientated HEENT: NCAT, EOMI, PERRL, OP Clear Neck: supple, no adenopathy, no thyromegaly, no JVD CVS/Heart: irregular irregular normal S1S2, pulses present bilaterally Chest/Lungs: CTA B, Symmetrical chest expansion, good air entry bilaterally GI/Abdomen: soft, rll and epigastric tenderness, soft nontender ventral hernia, good bowel sounds, no guarding or rebound /Bladder: no suprapubic tenderness, no CVA or paraspinal tenderness Extermity/Skin: no c/c/e, no obvious rash MSK: FROM x 4 Neuro: CN 2-12 grossly intact, no new focal deficits, resting tremor right hand- denies 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 Psych: calm - Constitutional Vitals: Temp Pulse Resp BP Pulse Ox 98.0 F 77 18 126/73 93 03/22/19 07:52 03/22/19 10:38 03/22/19 07:52 03/22/19 07:52 03/22/19 07:52 General appearance: Present: no acute distress Results - Labs CBC & Chem 7: 03/20/19 09:27 03/21/19 05:54 Labs: Laboratory Last Values WBC 8.1 K/mm3 (4.5-11.0) 03/20/19 04:17 RBC 3.50 M/mm3 (3.65-5.03) L 03/20/19 04:17 Hgb 11.9 gm/dl (10.1-14.3) 03/20/19 09:27 Hct 35.1 % (30.3-42.9) 03/20/19 09:27 MCV 95 fl (79-97) 03/20/19 04:17 MCH 33 pg (28-32) H 03/20/19 04:17 MCHC 34 % (30-34) 03/20/19 04:17 RDW 14.1 % (13.2-15.2) 03/20/19 04:17 Plt Count 202 K/mm3 (140-440) 03/20/19 09:27 Lymph % (Auto) 29.7 % (13.4-35.0) 03/20/19 04:17 Maries % (Auto) 7.9 % (0.0-7.3) H 03/20/19 04:17 Eos % (Auto) 2.9 % (0.0-4.3) 03/20/19 04:17 Baso % (Auto) 0.8 % (0.0-1.8) 03/20/19 04:17 Lymph # 2.4 K/mm3 (1.2-5.4) 03/20/19 04:17 Maries # 0.6 K/mm3 (0.0-0.8) 03/20/19 04:17 Eos # 0.2 K/mm3 (0.0-0.4) 03/20/19 04:17 Baso # 0.1 K/mm3 (0.0-0.1) 03/20/19 04:17 Seg Neutrophils % 58.7 % (40.0-70.0) 03/20/19 04:17 Seg Neutrophils # 4.7 K/mm3 (1.8-7.7) 03/20/19 04:17 PT 24.2 Sec. (12.2-14.9) H 03/22/19 04:46 INR 2.02 (0.87-1.13) H 03/22/19 04:46 APTT 28.0 Sec. (24.2-36.6) 03/20/19 09:27 D-Dimer 661.14 ng/mlDDU (0-234) H 03/19/19 19:42 Heparin Anti-Xa Level 0.59 U.I./ml (0.3-0.7) 03/21/19 05:54 Sodium 143 mmol/L (137-145) 03/21/19 05:54 Potassium 3.5 mmol/L (3.6-5.0) L 03/21/19 05:54 Chloride 107.5 mmol/L (98-107) H 03/21/19 05:54 Carbon Dioxide 24 mmol/L (22-30) 03/21/19 05:54 Anion Gap 15 mmol/L 03/21/19 05:54 BUN 15 mg/dL (7-17) 03/21/19 05:54 Creatinine 0.8 mg/dL (0.7-1.2) 03/21/19 05:54 Estimated GFR > 60 ml/min 03/21/19 05:54 BUN/Creatinine Ratio 19 % 03/21/19 05:54 Glucose 112 mg/dL (65-100) H 03/21/19 05:54 POC Glucose 116 (70-105) H 03/22/19 07:19 Calcium 8.7 mg/dL (8.4-10.2) 03/21/19 05:54 Magnesium 2.00 mg/dL (1.7-2.3) 03/21/19 05:54 Total Bilirubin 0.80 mg/dL (0.1-1.2) 03/19/19 19:42 AST 24 units/L (5-40) 03/19/19 19:42 ALT 16 units/L (7-56) 03/19/19 19:42 Alkaline Phosphatase 83 units/L (35-129) 03/19/19 19:42 Total Creatine Kinase 142 units/L (30-135) H 03/20/19 14:08 CK-MB (CK-2) 2.6 ng/mL (0.0-4.0) 03/20/19 14:08 CK-MB (CK-2) Rel Index 1.8 (0-4) 03/20/19 14:08 Troponin T < 0.010 ng/mL (0.00-0.029) 03/21/19 05:54 NT-Pro-B Natriuret Pep 632.1 pg/mL (0-900) 03/19/19 19:42 Total Protein 7.3 g/dL (6.3-8.2) 03/19/19 19:42 Albumin 3.8 g/dL (3.9-5) L 03/19/19 19:42 Albumin/Globulin Ratio 1.1 % 03/19/19 19:42 Triglycerides 106 mg/dL (2-149) 03/20/19 04:17 Cholesterol 89 mg/dL (50-199) 03/20/19 04:17 LDL Cholesterol Direct 52 mg/dL (50-130) 03/20/19 04:17 HDL Cholesterol 28 mg/dL (40-59) L 03/20/19 04:17 Cholesterol/HDL Ratio 3.17 % 03/20/19 04:17 TSH 2.550 mlU/mL (0.270-4.200) 03/19/19 19:42 Active Medications - Current Medications Current Medications: Generic Name Dose Route Start Last Admin Trade Name Freq PRN Reason Stop Dose Admin Acetaminophen 650 mg 03/20/19 01:44 Tylenol PO Q4H PRN Pain MILD(1-3)/Fever >100.5/COLLINS Aspirin 325 mg 03/20/19 10:00 03/22/19 10:38 Aspirin PO 325 mg QDAY AJ Administration Dextrose 50 ml 03/20/19 01:44 D50w (25gm) Syringe IV PRN PRN Hypoglycemia Furosemide 40 mg 03/21/19 10:00 03/22/19 10:38 Lasix PO 40 mg DAILY AJ Administration Insulin Human Lispro 0 unit 03/20/19 07:30 03/22/19 10:05 Humalog SUB-Q Not Given ACHS [facility] Protocol Lisinopril 20 mg 03/21/19 14:00 03/22/19 10:38 Zestril PO 20 mg QDAY AJ Administration Metoprolol Tartrate 50 mg 03/20/19 10:00 03/22/19 10:37 Lopressor PO 50 mg BID AJ Administration Ondansetron HCl 4 mg 03/20/19 01:44 Zofran IV Q8H PRN Nausea And Vomiting Oxycodone/Acetaminophen 1 tab 03/20/19 01:44 Percocet 5/325 PO Q6H PRN Pain, Moderate (4-6) Pantoprazole Sodium 40 mg 03/21/19 14:00 03/22/19 10:32 Protonix PO 40 mg QDAY AJ Administration Potassium Chloride 20 meq 03/21/19 10:00 03/22/19 10:32 K-Dur PO 20 meq QDAY AJ Administration Sodium Chloride 10 ml 03/20/19 10:00 03/22/19 10:38 Sodium Chloride Flush Syringe 10 Ml IV 10 ml BID AJ Administration Sodium Chloride 10 ml 03/20/19 01:44 Sodium Chloride Flush Syringe 10 Ml IV PRN PRN LINE FLUSH Nutrition/Malnutrition Assess - Dietary Evaluation Nutrition/Malnutrition Findings: Nutrition Notes Start: 03/22/19 10:09 Freq: Status: Active Protocol: Document 03/22/19 10:10 SA (Rec: 03/22/19 10:11 [id number]) Co-Sign 03/22/19 10:10 LP Nutrition Notes Need for Assessment generated from: Education Initial or Follow up Brief Note Subjective/Other Information Screen for DNI. Patient states she's no longer on Coumadin and doesn't need education. However, she did accept handout. Nutrition Intervention Revisit per MD consult or patient Sign Off request:
--- NOTE | 2019-03-22 11:20 | Ultrasound Report ---
ULTRASOUND ABDOMEN LIMITED: TECHNIQUE: Transabdominal ultrasound with color Doppler interrogation. HISTORY: right upper quadrant abdominal pain, distended gallbladder. COMPARISON: CT abdomen pelvis with contrast 03/19/19. FINDINGS: LIVER: There is mild diffuse fatty infiltration throughout the liver. No evidence for enlargement, suspicious mass or surface nodularity. BILIARY SYSTEM: The gallbladder does appear mildly prominent. An approximate 1.6 x 0.9 cm solitary gallstone is identified. There is no evidence for wall thickening or surrounding fluid. The CBD is dilated up to 9 mm in diameter although no choledocholithiasis is identified on ultrasound. PANCREAS: Obscured by bowel gas. RIGHT KIDNEY: Normal. PROXIMAL AORTA: Normal. ASCITES: None. IMPRESSION: Mild hepatic steatosis. Gallstone. Dilated common bile duct measuring 9 mm. Consider further evaluation with MRCP or ERCP.
--- NOTE | 2019-03-22 11:24 | Discharge Summary ---
Providers - Providers Date of Admission: 03/20/19 01:44 Date of discharge: 03/22/19 Attending physician: CARLYN KRISHNAMURTHY 03/20/19 01:44 Consult to Physician [CONS] Routine Comment: Consulting Provider: BRIGITTE GARCIA Physician Instructions: Reason For Exam: pericardial effusio 03/21/19 12:11 Consult to Physician [CONS] Routine Comment: Consulting Provider: WILDER RIVER Physician Instructions: Reason For Exam: epigastric abd pains, distended gb [facility] Condition: Stable Hospital course: Patient is a 68 yo woman with a history of Afib, hypertension and DM who presented to [facility] ED on 03/19/19 with chest pains. * CTA chest IMPRESSION: There is no pulmonary embolism.. Heart is borderline enlarged. There is a moderate pericardial effusion.. There is no thoracic aortic aneurysm or dissection.. There is suboptimal inspiration. There is atelectasis at the lung bases. There are no acute infiltrates.. There is no pleural effusion or pneumothorax.. * CT abd/pelvis with contrast IMPRESSION: There is thickening of the gastric wall involving the pylorus of the stomach, minimal fluid around the gastric wall in this region is noted. Gastritis is possible. Further evaluation with endoscopy may be appropriate. There is a mild hiatal hernia. There is no radha dence of intestinal or urinary tract obstruction. Cholelithiasis with slight distention of the gallbladder lumen. No evidence of bile duct dilatation. Cardiomegaly with slight pericardial effusion. There is a moderate-sized fat- containing lower abdominal wall ventral hernia cavity. . -Chest pains, first troponin negative, 2nd troponin positive but 3rd set back to normal so NSTEMI ruled out, the chest pains most likely GERD related, her main compliant now: consult GI, -Epigastric abd pains: get GB ultrasound, HIDA scan in am, will consider GS consult based upon those results -Pericardial effusion on CTA chest: reviewed Echo, small pericardial effusion -Accelerated hypertension: added bbjordan, -AFib, out of Xarelto x 2 weeks due to lack of insurance coverage: stop Xarelto, start lovenox/warfarin due to cost but patient really doesn't want to be on Warfarin due to the restriction and frequent monitoring, she says that she is willing to pay the 600/mo for the Xarelto -Hypertension; Increased the lisinopril to 20mg/d and stopped the HCTZ -DM type 2: ssi and accuchecks -Resting tremor without diagnosis of PD: continue to monitor, advised outpt follow-up and care full code, in our ICU Disposition: continue inpatient care, INR went from 1.12 to 2.02 in 2 days. Will stop sq lovenox and adjust Warfarin; EGD and abd u/s pending, and possible d/c home based upon those results Disposition: DC- TO HOME OR SELFCARE Time spent for discharge: 35 minutes Core Measure Documentation - Palliative Care Palliative Care/ Comfort Measures: Not Applicable - Core Measures Any of the following diagnoses?: none - VTE Discharge Requirements Deep Vein Thrombosis/Pulmonary Embolism Present on Admission: No Has pt received <5 days of overlap therapy or INR<2.0: No Anticoagulant overlap therapy prescribed at discharge: No Contraindication No Overlap Therapy order at DC: Not Indicated Exam - Physical Exam Narrative exam: Gen: WDWN, NAD, Awake, Alert, Orientated HEENT: NCAT, EOMI, PERRL, OP Clear Neck: supple, no adenopathy, no thyromegaly, no JVD CVS/Heart: irregular irregular normal S1S2, pulses present bilaterally Chest/Lungs: CTA B, Symmetrical chest expansion, good air entry bilaterally GI/Abdomen: soft, rll and epigastric tenderness, soft nontender ventral hernia, good bowel sounds, no guarding or rebound /Bladder: no suprapubic tenderness, no CVA or paraspinal tenderness Extermity/Skin: no c/c/e, no obvious rash MSK: FROM x 4 Neuro: CN 2-12 grossly intact, no new focal deficits, resting tremor right hand- denies 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 Psych: calm - Constitutional Vitals: Temp Pulse Resp BP Pulse Ox 98.0 F 77 18 126/73 93 03/22/19 07:52 03/22/19 10:38 03/22/19 07:52 03/22/19 07:52 03/22/19 07:52 Plan Activity: other (no strenous activity) Diet: advance as tolerated Follow up with: KYLE LLANOS MD [Primary Care Provider] - 3-5 Days Forms: Warfarin Discharge Instruction Prescriptions: Lisinopril 20 mg PO DAILY #30 tab
--- NOTE | 2019-03-22 12:25 | Progress Note ---
Assessment and Plan Epigastric pain / nausea Abdomen/pelvis CT showed possible gastritis, hiatal hernia, cholelithiasis with slight distention of gallbladder, cardiomegaly with slight pericardial effusion. GI following- for endoscopy today. Pt is currently at moderate cardiovascular risk for endoscopy. No immediate cardiac contraindications to proceeding with endoscopy at this time. Elevated troponon x 1 set (< 0.010 -> 0.106 -> 0.010) ECG with no acute ischemic changes. Pt denies any precordial chest pain. Unclear significance. Lexiscan MPI stress test done 10/2017 was negative. Pericardial effusion "Slight" pericardial effusion visualized on abdomen CT, "Moderate" peric ardial effusion visualized on chest CTA. Echo reviewed - EF 40-45%, LA severely dilated, mod MR, RVSP 47mmHg, small pericardial effusion. No current evidence of hemodynamic instability. Cont present management. Plan to f/u as OP. Chronic atrial fibrillation Rate controlled. Cont lopressor. For endoscopy today. If no contraindications from GI standpoint, recommend coumadin with tx INR 2-3 and lovenox bridging as OP. Elevated DDimer Chest CTA negative for PE. HTN Stable. HLP Lipid panel reviewed. Hypokalemia Replete lytes PRN. Obesity Currently stable cardiac status. For endoscopy today. Pt may discharge home from cardiology standpoint. If no contraindications from GI standpoint, recommend discharge on warfarin and Lovenox 100mg BID x 5 days. Follow up in our [place] office with Dr. Velazquez for post-hospital f/u and INR check on 04/25/2019 @ 1:00PM. The patient has been seen in conjunction with Dr. Velazquez who agrees with the assessment and plan of care. Subjective Date of service: 03/22/19 Principal diagnosis: epigastric pain Interval history: pt sitting up at bedside, for endoscopy today. in AFib with CVR. Objective Last Vital Signs Temp 98.0 F 03/22/19 07:52 Pulse 77 03/22/19 10:38 Resp 18 03/22/19 07:52 BP 126/73 03/22/19 07:52 Pulse Ox 93 03/22/19 07:52 - Physical Examination General: No Apparent Distress HEENT: Positive: PERRL, Normocephaly, Mucus Membranes Moist Neck: Positive: neck supple, trachea midline Cardiac: Positive: irregularly irregular, S1/S2 Lungs: Positive: Decreased Breath Sounds Neuro: Positive: Grossly Intact Abdomen: Positive: Soft Skin: Negative: Rash Musculoskeletal: No Pain Extremities: Absent: edema - Labs and Meds Coagulation 03/22/19 Range/Units 04:46 PT 24.2 H (12.2-14.9) Sec. INR 2.02 H (0.87-1.13) - Imaging and Cardiology EKG: report reviewed, image reviewed Echo: report reviewed ( 05/2016 showed EF 50%, mild LVH, LA severely enlarged. )
[2019-03-22 13:42] LABS: INR 1.56 (0.87-1.13)
[2019-03-22] MEDS ORDERED: NACL 0.9% 1000 ML 1,000 ML IV SCH (14:00)
[2019-03-22] MEDS ORDERED: WATER FOR IRRIG STERILE IR ONE (14:01)
[2019-03-22] MEDS ORDERED: DIPRIVAN 10 MG/ML IV ONE (14:07)
[2019-03-22] MEDS ORDERED: VERSED ONE (14:07)
--- NOTE | 2019-03-22 14:07 | Anesthesia Day of Surgery ---
Anesthesia Day of Surgery - Day of Surgery Patient Examined: Yes Patient H&P Reviewed: Yes Patient is NPO: Yes Beta Blockers: Yes Cardiac Clearance: No Pulmonary Clearance: No
--- NOTE | 2019-03-22 14:08 | Anesthesia Consultation ---
Anesthesia Consult and Med Hx Date of service: 03/22/19 - Airway Anesthetic Teeth Evaluation: Good ROM Head & Neck: Adequate Mental/Hyoid Distance: Adequate Mallampati Class: Class III Intubation Access Assessment: Good - Pulmonary Exam CTA: Yes - Cardiac Exam Cardiac Exam: No Murmur - Pre-Operative Health Status ASA Pre-Surgery Classification: ASA3 Proposed Anesthetic Plan: MAC - Cardiovascular System Hx Hypertension: Yes Hx Cardia Arrhythmia: Yes (A. fib ) - Endocrine Hx Non-Insulin Dependent Diabetes: Yes - Other Systems Hx Obesity: Yes
--- NOTE | 2019-03-22 14:31 | Post Operative Note ---
Pre-op diagnosis: epigastric pain Post-op diagnosis: same Findings: EGD: hiatal hernia - multiple (12-16) ulcers distal body/proximal antrum somewhat confluent w/o significant bleeding stigmata - ulcers 4-1o mm mainly white based but some with erythema - otherwise benign Procedure: EGD Anesthesia: MAC Surgeon: WILDER RIVER Estimated blood loss: none Pathology: list Specimen disposition: to lab Condition: stable Disposition: floor
--- NOTE | 2019-03-22 14:52 | Operative Report ---
PROCEDURE: EGD. INDICATION: 1. Epigastric pain. 2. Anemia. MEDICATIONS: Propofol per QUALITY CONSULTANT. COMPLICATIONS: None. DESCRIPTION OF PROCEDURE: The patient brought to procedure suite. The patient had procedure discussed with her at length. All risks, complications, and benefits discussed after which the patient signed for the procedure to be performed. The patient was placed in left lateral decubitus position. Mouth block was placed in the patient's oral cavity. After adequate sedation medication as above, endoscope placed in the mouth and brought to level of the second portion of duodenum. Retroflexion view performed. The patient's vital signs remained stable throughout the procedure. FINDINGS: There was noted to be a medium hiatal hernia at GE junction 38 cm from the gums. Esophagus otherwise appeared to be normal. There were multiple approximately 12-16 ulcers noted in the very distal body and proximal antrum. These were in a confluent meaning almost extending in a circular pattern in and around that area. There was moderate gastritis and either more shallow ulcerations noted in and around that area. Ulcers ranged in size from 4-10 mm. No bleeding stigmata were noted that require treatment. Given the patient's increased INR no biopsies were performed. No significant stigmata of bleeding were noted. The remaining stomach otherwise appeared to be normal. The duodenum appeared to be normal. Retroflexion view performed in the stomach showed no other pathology other than noted above. The patient tolerated the procedure well. No complications noted during the procedure. IMPRESSION: 1. Hiatal hernia. 2. Otherwise, normal esophagus. 3. Multiple ulcers in the distal body and antrum of the stomach without bleeding stigmata. No treatment required. 4. Otherwise, normal EGD. RECOMMENDATIONS: 1. PPI daily. 2. Avoid NSAID and aspirin as possible. 3. Carafate suspension q.i.d. 4. If H and H stable, okay to discharge from GI standpoint, we will restart antiplatelet agents in 3 days. JOB# [id number] CAB/NTS
[2019-03-22 14:55] VITALS: BP 169/95
[2019-03-22] MEDS ORDERED: CARAFATE PO SCH (15:00)
[2019-03-22] MEDS ORDERED: COUMADIN PO SCH (17:00)
[2019-03-22] MEDS ORDERED: LOVENOX SUB-Q SCH (22:00)
[2019-03-23] MEDS ORDERED: NACL 0.9% 1000 ML 1,000 ML ONE (11:30)
== END 2019-03-22 18:05 | disposition home or self-care (01) | DRG 392 ==
LOC: ED 18:05 → IMCU 03-20 01:44 → 2B-ACE 03-21 16:49
PROVIDERS: ADMIT Internal Medicine; ATTEND Internal Medicine
PROC: 0DJ08ZZ Inspection of Upper Intestinal Tract, Via Natural or Artificial Opening Endoscopic (ICD-10-PCS; principal; 2019-03-22)
DX: K21.9 Gastro-esophageal reflux disease without esophagitis (principal); I31.3 Pericardial effusion (noninflammatory); I42.9 Cardiomyopathy, unspecified; K80.20 Calculus of gallbladder without cholecystitis without obstruction; K82.8 Other specified diseases of gallbladder; I48.2 Chronic atrial fibrillation; K25.9 Gastric ulcer, unspecified as acute or chronic, without hemorrhage or perforation; E87.6 Hypokalemia; I10 Essential (primary) hypertension; E66.9 Obesity, unspecified; E11.9 Type 2 diabetes mellitus without complications; K44.9 Diaphragmatic hernia without obstruction or gangrene; E78.5 Hyperlipidemia, unspecified; K29.70 Gastritis, unspecified, without bleeding; Z79.01 Long term (current) use of anticoagulants; Z90.710 Acquired absence of both cervix and uterus; Z68.39 Body mass index [BMI] 39.0-39.9, adult; Z79.899 Other long term (current) drug therapy
CPT/HCPCS: 36415; 71275; 74022; 74177; 76705; 80048; 80053; 80061; 82550; 82553; 82962; 83735; 83880; 84443; 84484; 85014; 85018; 85025; 85049; 85379; 85520; 85610; 85730; 93005; 93010; 93306; 96374; G0378; A9270-GY; J1644; J1650; J1815; J2250; J2704; J3480; J7030; Q0163; Q9967

== ENCOUNTER 2019-03-23 09:34 | Emergency (ER) | payer MEDICARE ==
[2019-03-23] MEDS ORDERED: NORCO 7.5/325 PO ONE (11:04)
[2019-03-23] MEDS ORDERED: IBUPROFEN PO ONE (11:04)
[2019-03-23] MEDS ORDERED: COLCHICINE PO ONE ×3 (12:47→13:30)
--- NOTE | 2019-03-23 13:10 | Emergency Department Report ---
ED Extremity Problem HPI - General Chief complaint: Extremity Problem,Nontraumatic Stated complaint: LFT LEG PAIN Time Seen by Provider: 03/23/19 10:59 Source: patient, family Mode of arrival: Wheelchair Limitations: Physical Limitation - History of Present Illness Initial comments: Patient is a 68-year-old female who is here complaining of left foot pain. Pain is nontraumatic. Patient states it hurts to have socks or blankets touch her foot. Patient was in the hospital and released yesterday. Patient was treated for congestive heart failure exacerbation. Patient also has some hypokalemia as well. Patient denies any fevers nausea vomiting diarrhea. Patient states pain is 10 out of 10 in severity as aching and throbbing in nature. Severity scale (0 -10): 8 - Related Data Home Medications Medication Instructions Recorded Confirmed Last Taken Lasix 40 mg PO DAILY 03/20/19 03/20/19 Unknown Metoprolol 100 mg PO DAILY 03/20/19 03/20/19 Unknown Potassium Chloride 20 meq PO DAILY 03/20/19 03/20/19 Unknown Xarelto 20 mg PO DAILY 03/20/19 03/20/19 Unknown Previous Rx's Medication Instructions Recorded Last Taken Type Acetaminophen [Acetaminophen TAB] 650 mg PO Q4H PRN #15 tablet 03/22/19 Unknown Rx Lisinopril 20 mg PO DAILY #30 tab 03/22/19 Unknown Rx HYDROcodone/ACETAMINOPHEN 1 each PO Q6HR PRN #12 tablet 03/23/19 Unknown Rx [Hydrocodone-Acetamin 5-325 mg] Ibuprofen [Ibu] 400 mg PO Q4-6H PRN #20 tablet 03/23/19 Unknown Rx Allergies Allergy/AdvReac Type Severity Reaction Status Date / Time No Known Allergies Allergy Unverified 03/19/19 18:19 ED Review of Systems ROS: Stated complaint: LFT LEG PAIN Other details as noted in HPI Comment: All other systems reviewed and negative ED Past Medical Hx - Past Medical History Hx Hypertension: Yes Hx Diabetes: Yes Additional medical history: AFIB - Surgical History Additional Surgical History: right knee, 2 c-sections,hysterectomy - Social History Smoking Status: Never Smoker Substance Use Type: None - Medications Home Medications: Home Medications Medication Instructions Recorded Confirmed Last Taken Type Lasix 40 mg PO DAILY 03/20/19 03/20/19 Unknown History Metoprolol 100 mg PO DAILY 03/20/19 03/20/19 Unknown History Potassium Chloride 20 meq PO DAILY 03/20/19 03/20/19 Unknown History Xarelto 20 mg PO DAILY 03/20/19 03/20/19 Unknown History Acetaminophen [Acetaminophen TAB] 650 mg PO Q4H PRN #15 tablet 03/22/19 Unknown Rx Lisinopril 20 mg PO DAILY #30 tab 03/22/19 Unknown Rx HYDROcodone/ACETAMINOPHEN 1 each PO Q6HR PRN #12 tablet 03/23/19 Unknown Rx [Hydrocodone-Acetamin 5-325 mg] Ibuprofen [Ibu] 400 mg PO Q4-6H PRN #20 tablet 03/23/19 Unknown Rx ED Physical Exam - General Limitations: Physical Limitation General appearance: alert, in no apparent distress - Head Head exam: Present: atraumatic, normocephalic - Eye Eye exam: Present: normal appearance - ENT ENT exam: Present: mucous membranes moist - Neck Neck exam: Present: normal inspection - Respiratory Respiratory exam: Present: normal lung sounds bilaterally. Absent: respiratory distress - Cardiovascular Cardiovascular Exam: Present: regular rate, normal rhythm. Absent: systolic murmur, diastolic murmur, rubs, gallop - GI/Abdominal GI/Abdominal exam: Present: soft, normal bowel sounds - Extremities Exam Extremities exam: Present: normal inspection, tenderness (to the dorsum of the left foot. There is some mild erythema and warmth. Pain with palpation.), other (patient with bilateral lower extremity edema that is 2+ nature.) - Back Exam Back exam: Present: normal inspection - Neurological Exam Neurological exam: Present: alert, oriented X3 - Psychiatric Psychiatric exam: Present: normal affect, normal mood - Skin Skin exam: Present: warm, dry, intact, normal color. Absent: rash ED Course Vital Signs 03/23/19 09:41 Temperature 98.2 F Pulse Rate 88 Respiratory 20 Rate Blood Pressure 139/100 O2 Sat by Pulse 97 Oximetry ED Medical Decision Making - Lab Data Lab Results 03/23/19 Range/Units 11:17 Uric Acid 10.6 H (3.5-7.6) mg/dL - Medical Decision Making Patient's uric acid level is elevated patient likely has a gouty arthritis exacerbation. Patient will be started on colchicine given meds for symptom relief be discharged home. Critical care attestation.: If time is entered above; I have spent that time in minutes in the direct care of this critically ill patient, excluding procedure time. 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
[2019-03-23 13:55] VITALS: BP 122/70
== END 2019-03-23 13:38 | disposition home or self-care (01) ==
LOC: ED 09:34
DX: M10.9 Gout, unspecified (principal); I11.0 Hypertensive heart disease with heart failure; I50.9 Heart failure, unspecified; E11.9 Type 2 diabetes mellitus without complications; Z90.710 Acquired absence of both cervix and uterus
CPT/HCPCS: 36415; 84550

== ENCOUNTER 2019-11-05 10:36 | Outpatient (CLI) | payer MEDICARE ==
--- NOTE | 2019-11-05 13:46 | Magnetic Resonance Report ---
MRI BRAIN WITHOUT CONTRAST INDICATION / CLINICAL INFORMATION: PARKINSONS DISEASE. TECHNIQUE: Multiplanar, multisequence MR images of the brain were obtained. COMPARISON: None available. FINDINGS: BRAIN / INTRACRANIAL CONTENTS: On the included FLAIR sequence, there are a few small hyperintense foc i involving the cerebral white matter most consistent with age-appropriate microvascular angiopathy. The diffusion imaging reveals no evidence of recent infarction. There is mild cerebral atrophy which also appears commensurate with age. The ventricular system is correspondingly appropriate in size and configuration. No extra-axial fluid collections or significant mass effect is identified. CRANIOCERVICAL JUNCTION: No significant abnormality. VASCULAR FLOW-VOIDS: No significant abnormality. ORBITS: No significant abnormality of visualized orbits. SINUSES / MASTOIDS: No significant abnormality of the visualized paranasal sinuses or mastoid air flor ls. ADDITIONAL FINDINGS: None. IMPRESSION: 1. The MRI of the brain appears appropriate for age without evidence of recent infarction. Signer Name: David Ramirez MD Signed: 11/05/2019 1:42 PM Workstation Name: [id number]
== END 2019-11-05 10:37 | disposition home or self-care (01) ==
LOC: SPVIMAG 10:36
PROVIDERS: ATTEND Psychiatry & Neurology Neurology
DX: G20 Parkinson's disease (principal)
CPT/HCPCS: 70551